=== PATIENT | male | born 2000 | race Asian ===

== ENCOUNTER 2023-09-13 12:31 | Inpatient (IN) ==
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
[2023-09-13] MEDS: fentaNYL citrate PF 100 MCG/2 ML VIAL IV STA ×2 (12:56→14:18)
[2023-09-13] MEDS: ONDANSETRON INJ 2 MG/ML 2 ML VIAL IV STA (12:56)
[2023-09-13 13:16] LABS: Hematocrit (blood only) 44.4 % (42.0-52.0); Hemoglobin 14.9 g/dl (14.0-18.0); Mean Corpuscular Hemoglobin 28.8 pg (25.0-34.0); Mean Corpuscular Hgb Conc 33.6 g/dL (32.0-36.0); Mean Corpuscular Volume 85.7 fL (80.0-100.0); Mean Platelet Volume 9.6 fL (9.4-12.4); Platelet Count 369 K/uL (130-400); RDW Coefficient of Variation 12.8 % (11.5-14.5); RDW Standard Deviation 39.6 fL (36.4-46.3); Red Blood Count 5.18 M/uL (4.70-6.10); White Blood Count 11.33 K/ul (4.8-10.8)
[2023-09-13 13:23] LABS: Basophils # (auto) 0.11 K/uL (0.00-0.20); Eosinophils # (auto) 0.29 K/uL (0.00-0.50); Eosinophils % (auto) 2.6 %; Immature Granulocytes # (auto) 0.04 K/uL (0.01-0.20); Immature Granulocytes % (auto) 0.4 %; Lymphocytes # (auto) 4.53 K/uL (1.20-3.40); Monocytes # (auto) 1.17 K/uL (0.11-0.59); Monocytes % (auto) 10.3 %; Neutrophils # (auto) 5.19 K/uL (1.40-6.50); Neutrophils % (auto) 45.7 %; RBC Morphology Unremarkable
[2023-09-13 13:28] LABS: Alanine Aminotransferase 38 U/L (7-52); Albumin Globulin Ratio 1.4 (0.9-2); Albumin Level 4.6 gm/dl (3.4-5.0); Alkaline Phosphatase 131 U/L (34-104); Anion Gap 9 (3-11); BUN Creatinine Ratio 9.6 (10-20); Bilirubin,Total 0.3 mg/dl (0.2-1.0); Blood Urea Nitrogen 8 mg/dl (6-23); Calcium 9.2 mg/dl (8.6-10.3); Carbon Dioxide 26 mmol/L (21-32); Chloride 103 mmol/L (98-107); Est GFR (African American) 144.8 ml/min; Est GFR (Non-African American) 124.9 ml/min; Globulin 3.4 gm/dl (2.5-4.0); Glucose 83 mg/dl (70-99(Fasting)); Sodium 138 mmol/L (136-145)
[2023-09-13 13:34] LABS: Partial Thromboplastin Ratio 0.8; Partial Thromboplastin Time 21 Seconds (21-31); Prothrombin Time 10.7 Seconds (9.0-12.0)
[2023-09-13 13:36] LABS: Potassium 3.9 mmol/L (3.5-5.1)
[2023-09-13 13:42] LABS: Aspartate Aminotransferase 27 U/L (13-39)
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
[2023-09-13] MEDS ORDERED: METOCLOPRAMIDE HCL INJ 5 MG/ML 2 ML VIAL IV PRN (16:12)
[2023-09-13] MEDS ORDERED: ONDANSETRON INJ 2 MG/ML 2 ML VIAL IV PRN (16:12)
[2023-09-13] MEDS ORDERED: diphenhydrAMINE Capsule 25 MG CAP PO PRN (16:12)
--- NOTE | 2023-09-13 16:15 | XRay Report ---
XR knee LT 1 or 2V routine CLINICAL HISTORY: fracture TECHNIQUE: 2 views of the left knee were obtained. Comparison: Comparison is made to tibia and fibular radiograph 09/13/2023 FINDINGS: There is no evidence of an acute fracture. Joint spaces are well-preserved. No joint effusion is seen . No soft tissue abnormality is seen. IMPRESSION: No evidence of acute osseous injury. ACT 112: Negative or not required by law. Electronically signed by: Mihir Chou M.D. 09/13/2023 4:13 PM
[2023-09-13] MEDS: HYDROmorphone INJ 0.5 MG/0.5 ML SYR IV PRN (16:43)
--- NOTE | 2023-09-13 17:57 | XRay Report ---
XR chest 2V PA/lateral CLINICAL HISTORY: preop TECHNIQUE: 2 views of the chest were obtained. Comparison: None available at the time of this dictation. FINDINGS: No lines and tubes are seen. The cardiomediastinal silhouette is normal. The lungs are clear. No evid ence of pleural effusion or pneumothorax. IMPRESSION: No acute chest disease. ACT 112: Negative or not required by law. Electronically signed by: Mihir Chou M.D. 09/13/2023 5:55 PM
[2023-09-13] MEDS: KETOROLAC 30 MG/ML VIAL IV PRN (19:29)
[2023-09-13] MEDS: DOCUSATE SODIUM 100 MG CAP PO SCH (20:55)
--- NOTE | 2023-09-14 07:11 | Anesthesiology Consultation ---
Date of Service September 14, 2023 Assessment & Plan Chart Review Chart Review: Acceptable Risk for Surgery and Patient NOT seen in Pre Admission Testing Consults Requested none History Surgery Operation Date: 09/14/23 09:00 Proposed Procedures p Intramedullary Nail Tibia(Left) - Ignacio Reza MD Height/Weight Height: 5 ft 7 in Weight: 80.25 kg Allergies Allergy/AdvReac Type Severity Reaction Status Date / Time No Known Allergies Allergy Unverified 09/13/23 14:44 Medications Home Medications Medication Instructions Recorded Confirmed Last Taken No Known Home Medications 09/13/23 09/13/23 Unknown Active Medications Generic Name Dose Route Start Last Admin Trade Name Freq PRN Reason Stop Dose Admin Docusate Sodium 100 mg 09/13/23 21:00 09/13/23 20:55 Docusate Sodium 100 Mg Cap PO 10/13/23 20:59 Not Given BID MIGUELITO Hydromorphone HCl 0.5 mg 09/13/23 16:12 09/14/23 06:02 Hydromorphone Inj 0.5 Mg/0.5 Ml Syr IV 09/27/23 16:11 0.5 mg Q6H PRN Administration Pain Ketorolac Tromethamine 30 mg 09/13/23 16:12 09/14/23 01:34 Ketorolac 30 Mg/Ml Vial IV 09/18/23 16:11 30 mg Q6H PRN Administration Pain NPO Date Last Intake of Fluids: 09/13/23 Time Last Intake of Fluids: 23:55 Date Last Intake of Solids: 09/13/23 Time Last Intake of Solids: 22:00 Social History Smoking Status: Never smoker Do You Dip or Chew Tobacco: No Hx Alcohol Use: Yes Alcohol type: hard liquor alcohol intake frequency: a few times a month Hx Substance Use: No Physical Exam Vital Signs Last Vital Signs Temp 36.9 C 09/13/23 20:02 Pulse 93 H 09/13/23 20:02 Resp 20 09/13/23 20:02 BP 139/86 09/13/23 20:02 Pulse Ox 98 09/13/23 20:02 O2 Del Method Room Air 09/13/23 20:02 Testing Laboratory Results 09/13/23 12:39 09/13/23 12:39 PT 10.7 Seconds (9.0-12.0) 09/13/23 12:39 INR 1.0 (0.9-1.1) 09/13/23 12:39 APTT 21 Seconds (21-31) 09/13/23 12:39 Blood Type B Positive 09/13/23 17:46 Antibody Screen NEGATIVE 09/13/23 17:46
[2023-09-14] MEDS ORDERED: LIDOCAINE 2% 2 ML VIAL/AMP(20MG/ML) INFIL ONE (08:32)
[2023-09-14] MEDS ORDERED: PROPOFOL IV EMULSION 10 MG/ML 20 ML VIAL IV ONE (08:32)
[2023-09-14] MEDS ORDERED: ROCURONIUM BROMIDE 10 MG/ML 5 ML VIAL IV ONE ×2 (08:32→09:52)
[2023-09-14] MEDS ORDERED: ONDANSETRON INJ 2 MG/ML 2 ML VIAL ONE (08:32)
[2023-09-14] MEDS ORDERED: DEXAMETHASONE SOD INJ 4 MG/ML VIAL ONE (08:32)
[2023-09-14] MEDS ORDERED: MIDAZOLAM HCL 1 MG/ML 2ML VIAL ONE (08:32)
[2023-09-14] MEDS ORDERED: fentaNYL citrate PF 100 MCG/2 ML VIAL ONE ×3 (08:33→10:49)
[2023-09-14] MEDS ORDERED: KETAMINE HCL 10MG/ML SYR ONE (08:33)
[2023-09-14] MEDS ORDERED: DexMEDEtomidine HCL IV 100 MCG/ML VIAL IV ONE (09:10)
[2023-09-14] MEDS: ceFAZolin 2000MG 2,000 MG/15 ML SYR IV SCH ×2 (09:18→16:18)
[2023-09-14] MEDS ORDERED: ceFAZolin 330 MG/ML 1 GM VIAL ONE (09:18)
[2023-09-14] MEDS: TRANEXAMIC ACID / 0.7% NACL 1000MG/100ML BAG IV ONE (09:20)
[2023-09-14] MEDS ORDERED: HYDROmorphone INJ 2 MG/ML SYR/VIAL ONE (10:59)
[2023-09-14] MEDS: HYDROmorphone INJ 0.5 MG/0.5 ML SYR IV STA ×2 (11:24→11:25)
[2023-09-14] MEDS ORDERED: SUGAMMADEX SODIUM 200 MG/2 ML VIAL IV ONE (12:12)
[2023-09-14] MEDS: BUPIVACAINE/EPINEPHRINE 0.5% MPF 1:200,000 30 ML VIAL ONE (12:29)
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
[2023-09-14] MEDS ORDERED: bisacodyL 10 MG SUPP PR PRN (12:56)
[2023-09-14] MEDS ORDERED: NALOXONE HCL 0.4 MG/1 ML VIAL/CARP IV PRN (12:56)
[2023-09-14] MEDS ORDERED: MAGNESIUM HYDROXIDE SUSP 30 ML UDC PO PRN (12:56)
[2023-09-14] MEDS: SODIUM CHLORIDE 0.9% 1,000 ML IV SCH (13:56)
--- NOTE | 2023-09-14 14:16 | Anesthesiology Progress Note ---
Date of Service September 14, 2023 Anesthesia Post Procedure Vital Signs Vital Signs: Temp Pulse Pulse Resp BP Pulse Ox O2 Del Method 09/14/23 13:57 36.6 C 86 18 132/80 96 Room Air 09/14/23 13:40 86 16 141/74 H 95 Room Air 09/14/23 13:30 36.4 C L 88 18 138/79 95 Room Air 09/14/23 13:20 83 14 130/72 98 Oxymask 09/14/23 13:10 82 16 113/47 L 98 Oxymask 09/14/23 13:00 87 12 126/60 98 Oxymask 09/14/23 12:50 36.3 C L 88 12 123/60 98 Oxymask 09/14/23 08:00 Room Air 09/14/23 07:20 36.6 C 73 15 132/87 97 Room Air 09/13/23 20:02 36.9 C 93 H 20 139/86 98 Room Air 09/13/23 19:30 Room Air 09/13/23 16:12 36.8 C 76 18 136/74 99 Room Air 09/13/23 15:57 Room Air O2 Flow Rate 09/14/23 13:57 09/14/23 13:40 09/14/23 13:30 09/14/23 13:20 4 09/14/23 13:10 4 09/14/23 13:00 6 09/14/23 12:50 6 09/14/23 08:00 09/14/23 07:20 09/13/23 20:02 09/13/23 19:30 09/13/23 16:12 09/13/23 15:57 Pain Intensity Left Leg: Pain Intensity: 4 Transfer of Care Handoff Completed per policy Notes Mental Status: alert / awake / arousable Patient Amnestic to Procedure: Yes Nausea / Vomiting: adequately controlled Pain: adequately controlled Airway Patency, RR, SpO2: stable & adequate BP & HR: stable & adequate Hydration State: stable & adequate Anesthetic Complications: no major complications apparent
--- NOTE | 2023-09-14 14:22 | Fluoroscopy Report ---
FL tibia/fibula LT 2V CLINICAL HISTORY: LEFT ORIF TIB/FIB TECHNIQUE: 8 views were obtained with the C-arm in the OR with the above procedure. Total fluoroscopy time was 3 minutes 51 seconds. Radiation dose was 5.86 mGy. Comparison: Comparison is made to tibia and fibula radiographs 09/13/2023 FINDINGS/IMPRESSION: Intraoperative images were obtained of open reduction internal fixation of left tibial and fibular fracture with tibial medullary nail placement. Please correlate with intraoperative fluoroscopy and operative report. ACT 112: Negative or not required by law. Electronically signed by: Mihir Chou M.D. 09/14/2023 2:20 PM
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
[2023-09-14] MEDS: TRANEXAMIC ACID / 0.7% NACL 1,000 MG/100 ML BAG IV SCH (18:18)
[2023-09-14] MEDS: SENNA 8.6 MG TAB PO SCH (20:53)
[2023-09-15] MEDS: oxyCODONE HCL IR 5 MG TAB (IMMEDIATE RELEASE) PO PRN (06:41)
[2023-09-15] MEDS: ACETAMINOPHEN 325 MG TAB PO PRN (06:43)
[2023-09-15 07:11] LABS: Hematocrit (blood only) 39.4 % (42.0-52.0); Hemoglobin 13.3 g/dl (14.0-18.0); Mean Corpuscular Hgb Conc 33.8 g/dL (32.0-36.0); Mean Platelet Volume 9.5 fL (9.4-12.4); Platelet Count 343 K/uL (130-400); RDW Coefficient of Variation 12.9 % (11.5-14.5); RDW Standard Deviation 39.9 fL (36.4-46.3); Red Blood Count 4.58 M/uL (4.70-6.10); White Blood Count 15.89 K/ul (4.8-10.8)
[2023-09-15 07:19] LABS: Anion Gap 8 (3-11); BUN Creatinine Ratio 12.5 (10-20); Blood Urea Nitrogen 9 mg/dl (6-23); Calcium 8.6 mg/dl (8.6-10.3); Carbon Dioxide 26 mmol/L (21-32); Chloride 103 mmol/L (98-107); Creatinine Clr Calc Pharmacy 163.3 ml/min; Est GFR (African American) > 150.0 ml/min; Est GFR (Non-African American) 132.4 ml/min; Glucose 119 mg/dl (70-99(Fasting)); Potassium 4.2 mmol/L (3.5-5.1); Sodium 137 mmol/L (136-145)
[2023-09-15] MEDS: ENOXAPARIN INJ 30 MG/0.3 ML SYR SQ SCH (09:53)
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
--- NOTE | 2023-09-15 15:51 | Electrocardiogram Report ---
Test Reason : Blood Pressure : / mmHG Vent. Rate : 095 BPM Atrial Rate : 095 BPM P-R Int : 128 ms QRS Dur : 080 ms QT Int : 330 ms P-R-T Axes : 057 041 019 degrees QTc Int : 414 ms Normal sinus rhythm Possible Left atrial enlargement Borderline ECG No previous ECGs available Confirmed by Perico Padilla ([id number]) on 09/15/2023 3:51:26 PM Referred By: REFERRED SELF Confirmed By:Edis Padilla
[2023-09-15] MEDS: traMADol HCL 50 MG TABLET PO PRN (17:23)
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
== END 2023-09-16 13:03 | disposition home or self-care (01) | DRG 494 ==
LOC: ED 12:31 → 3E 14:38
DX: S82.462A Displaced segmental fracture of shaft of left fibula, initial encounter for closed fracture; V03.10XA Pedestrian on foot injured in collision with car, pick-up truck or van in traffic accident, initial encounter; S82.232A Displaced oblique fracture of shaft of left tibia, initial encounter for closed fracture